=== PATIENT | male | born 1995 | race Caucasian/White ===

== ENCOUNTER 2019-08-05 12:24 | Emergency (ER) | payer OTHER ==
[~2019-08-05] VITALS: Ht 180.3 cm; Wt 83.5 kg
--- NOTE | 2019-08-05 12:26 | NUR ---
PT BIBRA FROM [facility] C/O SEIZURE EPISODE WITNESSED, + HEADTRAUMA, PT IS AAOX3, NOT IN RESPIRATORY DISTRESS, HOOKED TO GRADUATE NURSE, KEPT RESTED AND COMFORTABLE, WILL CONTINUE TO MONITOR.
--- NOTE | 2019-08-05 12:34 | NUR ---
SEEN AND EXAMINED BY .
--- NOTE | 2019-08-05 12:35 | NUR ---
IV LINE ESTABLISHED, BLOOD DRAWN AND SENT TO LAB.
[2019-08-05] MEDS ORDERED: LORAZEPAM INJ 2 MG/ML VIAL ONE (12:42)
--- NOTE | 2019-08-05 12:45 | NUR ---
URINE SPECIMEN COLLECTED AND SENT TO LAB.
[2019-08-05 12:48] LABS: BASOPHILS % (AUTO) 0.6 % (0.0-2.0); EOSINOPHILS % (AUTO) 2.2 % (0.0-6.0); HEMATOCRIT 43 % (39-51); HEMOGLOBIN 14.3 g/dL (13.5-17.5); LYMPHOCYTES % (AUTO) 22.7 % (20.0-44.0); MEAN CORPUSCULAR HGB CONC 33 g/dl (31.0-36.0); MEAN CORPUSCULAR VOLUME 82 fL (80-96); MONOCYTES # (AUTO) 0.2 /CMM (0.1-1.30); NEUTROPHILS # (AUTO) 3.2 /CMM (1.8-8.9); NEUTROPHILS % (AUTO) 69.5 % (43.0-81.0); PLATELET COUNT (AUTO) 238 /CMM (150-450); RED BLOOD CELL COUNT(AUTO) 5.21 MIL/uL (4.5-6.0); WHITE BLOOD COUNT (AUTO) 4.6 K/uL (4.3-11.0)
--- NOTE | 2019-08-05 12:50 | NUR ---
PT IS WHEELED TO CT SCAN VIA [facility].
[2019-08-05 12:57] LABS: ALCOHOL, BLOOD < 3 mg/dL (0-0); CALCIUM, SERUM 8.8 mg/dL (8.5-10.1); CARBON DIOXIDE 23 mmol/L (21-32); CHLORIDE 101 mmol/L (98-107); CREATININE 1.2 mg/dL (0.6-1.3); GLUCOSE 159 mg/dL (74-106); POTASSIUM 3.9 mmol/L (3.5-5.1); SODIUM SERUM 139 mmol/L (136-145); UREA NITROGEN, BLOOD 12 mg/dL (7-18)
[2019-08-05] MEDS ORDERED: IV NS 0.9% 1,000 ML BAG IV ONE (13:00)
[2019-08-05] MEDS ORDERED: LORAZEPAM INJ 2 MG/ML VIAL IVP ONE (13:00)
--- NOTE | 2019-08-05 13:44 | NUR ---
IV removed. Catheter intact and site benign. Pressure and 4x4 applied to site. No bleeding noted. Patient discharged to home in stable condition. Written and verbal after care instructions given. Patient verbalizes understanding of instruction.
[2019-08-05 13:45] VITALS: BP 143/79
== END 2019-08-05 13:46 | disposition home or self-care (01) ==
LOC: ER 12:30
DX: S09.8XXA Other specified injuries of head, initial encounter (principal); R56.9 Unspecified convulsions; W17.89XA Other fall from one level to another, initial encounter; Y93.89 Activity, other specified; Y92.89 Other specified places as the place of occurrence of the external cause; Y99.8 Other external cause status
CPT/HCPCS: 36415; 70450; 80048; 80305; 80307; 82962; 85025; 93005; 96374; 99285; J2060; G0480